=== PATIENT | female | born 1975 ===

== ENCOUNTER 2019-07-21 14:56 | Emergency (ER) | payer OTHER ==
[~2019-07-21] VITALS: Ht 152.4 cm; Wt 61.2 kg
[2019-07-21] MEDS ORDERED: NORFLEX100MG PO (20:13)
[2019-07-21] MEDS ORDERED: DICLOFENAC SODI50 MG PO (20:13)
== END 2019-07-21 20:25 | disposition home or self-care (01) ==
LOC: ER 14:56
DX: R07.89 Other chest pain (principal); R00.2 Palpitations; M94.0 Chondrocostal junction syndrome [Tietze]